=== PATIENT | male | born 1955 | race Caucasian/White ===

== ENCOUNTER 2019-03-01 06:13 | Day surgery (SDC) | payer BC ==
[2019-03-01] MEDS ORDERED: Lidocaine 1% PF 2 ML SDV INJECT ONE (06:14)
[2019-03-01] MEDS ORDERED: Propofol 200 MG/20 ML SDV IV ONE (06:14)
[2019-03-01] MEDS ORDERED: Lactated Ringers 1,000 ML IV SCH (06:15)
[2019-03-01] MEDS ORDERED: Sodium Chloride 0.9% 10 ML Syringe FLUSH PRN (06:15)
--- NOTE | 2019-03-01 07:32 | PCM.HP.2 ---
H&P History of Present Illness - General Date of Service: 03/01/19 Admit Problem/Dx: Admission Diagnosis/Problem Admission Diagnosis/Problem Colonoscopy Source of Information: Patient, Old Records History Limitations: Reports: No Limitations - History of Present Illness Initial Comments - Free Text/Narative: Here for colonoscopy for hx polyps and FH Colon Ca in mother. Last one 5 yrs ago. - Related Data Allergies/Adverse Reactions: Allergies Allergy/AdvReac Type Severity Reaction Status Date / Time No Known Allergies Allergy Verified 02/28/19 14:14 Home Medications: Home Meds Glucagon,Human Recombinant [Glucagon Emergency Kit] 1 mg IM ONETIME PRN [History] Hydrochlorothiazide/Losartan [Hyzaar 100-25 MG] 1 tab PO DAILY 02/22/14 [History ] Levothyroxine Sodium [Synthroid] 125 mcg PO SUTUWETHSA 02/22/14 [History] Levothyroxine Sodium [Synthroid] 250 mcg PO MOFR 02/22/14 [History] Metoprolol Succinate [Toprol Xl] 100 mg PO DAILY 02/22/14 [History] Potassium Chloride [Klor-Con] 20 meq PO DAILY 02/22/14 [History] Tadalafil [Cialis] 5 mg PO DAILY PRN 02/22/14 [History] Tamsulosin HCl [Flomax] 0.4 mg PO BEDTIME 02/22/14 [History] Warfarin [Coumadin] 2.5 mg PO SUTUTHSA 02/22/14 [History] Warfarin [Coumadin] 5 mg PO MOWEFR 02/22/14 [History] atorvaSTATin [Lipitor] 10 mg PO BEDTIME 02/22/14 [History] metFORMIN [Glucophage] 500 mg PO DAILY 02/22/14 [History] Benzonatate [Tessalon Perle] 100 mg PO TID PRN 02/28/19 [History] Insulin Aspart [NovoLOG] 45 unit SUBCUT DAILY 02/28/19 [History] Mecobalamin [B-12] 1,000 mcg SL DAILY 02/28/19 [History] Past Medical History HEENT History: Reports: Impaired Vision Cardiovascular History: Reports: Afib, Arrhythmia, High Cholesterol, Hypertension Respiratory History: Reports: None Gastrointestinal History: Reports: Colon Polyp Genitourinary History: Reports: Chronic Renal Insuffiency Musculoskeletal History: Reports: None Neurological History: Reports: Neuropathy, Diabetic, Seizure Psychiatric History: Reports: None Endocrine/Metabolic History: Reports: Diabetes, Type I, Hyperthyroidism, Hypothyroidism, Obesity/BMI 30+ Hematologic History: Reports: Anticoagulation Therapy, B12 Deficiency Oncologic (Cancer) History: Reports: None Dermatologic History: Reports: None - Past Surgical History Head Surgeries/Procedures: Reports: None HEENT Surgical History: Reports: None Cardiovascular Surgical History: Reports: None Respiratory Surgical History: Reports: None GI Surgical History: Reports: Colonoscopy Male Surgical History: Reports: None Endocrine Surgical History: Reports: Thyroidectomy Neurological Surgical History: Reports: None Musculoskeletal Surgical History: Reports: Other (See Below) Other Musculoskeletal Surgeries/Procedures:: FOOT SURGERY Oncologic Surgical History: Reports: None Dermatological Surgical History: Reports: None Social & Family History - Tobacco Use Smoking Status *Q: Current Every Day Smoker - Caffeine Use Caffeine Use: Reports: Coffee, Soda - Recreational Drug Use Recreational Drug Use: No H&P Review of Systems - Review of Systems: Review Of Systems: Comprehensive ROS is negative, except as noted in HPI. Exam - Exam Exam: See Below - Vital Signs Vital Signs: Last Vital Signs Temp 98.5 F 03/01/19 06:46 Pulse 60 03/01/19 06:46 Resp 16 03/01/19 06:46 BP 120/67 03/01/19 06:46 Pulse Ox 96 03/01/19 06:46 Weight: 87.543 kg - Exam General: Alert, Oriented Lungs: Clear to Auscultation, Normal Respiratory Effort Cardiovascular: Regular Rate, Regular Rhythm GI/Abdominal Exam: Soft, Non-Tender - Patient Data Lab Results Last 24 hrs: Laboratory Results - last 24 hr 03/01/19 Range/Units 06:51 POC Glucose 194 H (80-116) mg/dL Problem List Initiated/Reviewed/Updated: Yes Orders Last 24hrs: Active Orders 24 hr Category Date Time Status Patient Status [ADT] Routine ADT 03/01/19 06:15 Active Blood Glucose Check, Bedside [RC] ONETIME Care 03/01/19 06:15 Active Patient to Empty Bladder [RC] ASDIRECTED Care 03/01/19 06:15 Active Verify Patient Consent Obtain [RC] ASDIRECTED Care 03/01/19 06:15 Active Nothing Per Oral Diet [DIET] Diet 02/28/19 Dinner Ordered Lactated Ringers [Ringers, Lactated] 1,000 ml Med 03/01/19 06:15 Active IV ASDIRECTED Sodium Chloride 0.9% [Saline Flush] Med 03/01/19 06:15 Active 10 ml FLUSH ASDIRECTED PRN Peripheral IV Insertion Adult [OM.PC] Routine Oth 03/01/19 06:15 Ordered Resuscitation Status Routine Resus Stat 02/28/19 14:22 Ordered Medication Orders Lactated Ringer's (Ringers, Lactated) 1,000 mls @ 125 mls/hr IV ASDIRECTED JAIME Last Admin: 03/01/19 06:52 Dose: 125 mls/hr Sodium Chloride (Saline Flush) 10 ml FLUSH ASDIRECTED PRN PRN Reason: Keep Vein Open Assessment/Plan Comment:: Hx Colon Polyps, FH Colon Ca Ok to proceed
--- NOTE | 2019-03-01 07:53 | PCM.OPNOTE ---
- General Post-Op/Procedure Note Date of Surgery/Procedure: 03/01/19 Operative Procedure(s): Colonoscopy with polypectomy Findings: Asc Colon polyp Pre Op Diagnosis: Hx Polyps Post-Op Diagnosis: Same Anesthesia Technique: MAC Primary Surgeon: Jt MELO in mLs: 0 Complications: None Condition: Good
[2019-03-01 09:05] VITALS: BP 138/67; PULSE 58
--- NOTE | 2019-03-01 14:24 | OR ---
DATE OF OPERATION: 03/01/2019 SURGEON: Jt Valdez MD PREOPERATIVE DIAGNOSES: 1. History of colon polyps. 2. Family history of colon cancer. POSTOPERATIVE DIAGNOSIS: Ascending colon polyp. PROCEDURE: Colonoscopy with polypectomy. ANESTHESIA: IV sedation. PROCEDURE IN DETAIL: The patient was brought to the procedure room, where he was placed on his left side and IV sedation administered. Digital rectal exam was performed, which was normal. The colonoscope was inserted and advanced to the level of the cecum without difficulty. Cecal position was confirmed by identifying the appendiceal, lumen, and ileocecal valve. Prep was good and surfaces were well visualized. Upon withdrawing the scope, there was an 8 mm sessile polyp located in the proximal ascending colon that was removed with the cautery snare and retrieved in the polyp trap. The transverse and descending colon were normal. The sigmoid colon and rectum were normal. Retroflexion was normal. Air was removed and the scope withdrawn. The patient tolerated the procedure well and returned to recovery in stable condition. The patient will be contacted with the pathology report when it returns. Polyp appears to be adenomatous and would recommend that he undergo a repeat colonoscopy again in 3 years. /[id number] ADELA/[id number]
== END 2019-03-01 08:51 | disposition home or self-care (01) ==
LOC: FB.SDS 06:13
PROVIDERS: ATTEND Surgery
DX: Z12.11 Encounter for screening for malignant neoplasm of colon (principal); D12.2 Benign neoplasm of ascending colon; I10 Essential (primary) hypertension; I12.9 Hypertensive chronic kidney disease with stage 1 through stage 4 chronic kidney disease, or unspecified chronic kidney disease; E10.22 Type 1 diabetes mellitus with diabetic chronic kidney disease; N18.9 Chronic kidney disease, unspecified; E78.00 Pure hypercholesterolemia, unspecified; E03.9 Hypothyroidism, unspecified; E53.8 Deficiency of other specified B group vitamins; Z86.010 Personal history of colon polyps; Z80.0 Family history of malignant neoplasm of digestive organs; Z79.899 Other long term (current) drug therapy; Z79.01 Long term (current) use of anticoagulants; Z79.4 Long term (current) use of insulin
CPT/HCPCS: 45385; 82962; 88305; J2001; J2704; J7120